=== PATIENT | male | born 1955 ===

== ENCOUNTER 2022-04-08 11:16 | Inpatient (IN) ==
[2022-04-08] MEDS ORDERED: morphine 4 MG/ML VIAL IV ONE ×2 (11:35→12:17)
[2022-04-08] MEDS ORDERED: ONDANSETRON 4 MG/2 ML VIAL IV ONE (11:35)
--- NOTE | 2022-04-08 11:45 | Emergency Department Note ---
Abdominal Pain HPI <Alfonso Pelayo PA-C - Last Filed: 04/08/22 16:34> General Chief Complaint: Abdominal Pain Stated Complaint: abdominal pain Time Seen by Provider: 04/08/22 11:18 Source: patient Mode of arrival: wheelchair Limitations: no limitations History of Present Illness HPI Narrative: Narrative: This is a 66-year-old male with history end-stage liver disease status post TIPS and liver transplant, depression, hypertension, delayed gastric emptying and esophageal dysmotility with changes suggesting achalasia, TBI on disability and cholelithiasis status postcholecystectomy and of unexplained abdominal pain presents emergency department with complaints of abdominal pain, nausea, dry heaves. He states that this is happened many times before and he has had extensive work-ups and has seen multiple specialists and they have been unable to determine the cause of his abdominal pain. He points to the periumbilical and suprapubic area as where it hurts the most he describes the p ain as a constant dull ache that radiates to his left lower quadrant. Any movement or palpation makes the pain worse. Nothing seems to have improved his pain at home. This this episode of abdominal pain has been going on for 10 days. He does endorse shortness of breath on review of systems but states that he always gets this shortness of breath when he gets abdominal pain. He does have a history of A. fib when he goes into surgery but otherwise is not in A. fib and is not anticoagulated. He denies a recent surgery or procedures or known active cancer or prolonged time of immobilization. He denies lower extremity pain or swelling. He denies fever, chest pain, hemoptysis, hematemesis, dysuria, urinary frequency or urgency, black or bloody stools or hematochezia. Does have a history of a liver transplant in 2013. He is a current tobacco user for the past 40+ years. I have reviewed his note from July 18, 2021 where he was admitted to [facility] for elevated lactic acid and acute kidney injury. At this time he was also having abdominal pain episode. A C. difficile was negative at the time Related Data Home Medications Medication Instructions Recorded Confirmed amlodipine 10 mg tablet 1 tab PO QDAY 04/08/22 04/08/22 desvenlafaxine 100 mg 100 mg PO HS 04/08/22 04/08/22 tablet,extended release 24 hr lisinopril 10 mg tablet 1 tab PO QDAY 04/08/22 04/08/22 rosuvastatin 5 mg tablet 1 tab PO QDAY 04/08/22 04/08/22 tacrolimus 1 mg capsule, 1 mg PO QAM 04/08/22 04/08/22 immediate-release tacrolimus 1 mg capsule, 2 mg PO QHS 04/08/22 04/08/22 immediate-release triamterene 37.5 1 cap PO QAM 04/08/22 04/08/22 mg-hydrochlorothiazide 25 mg capsule Allergies Allergy/AdvReac Type Severity Reaction Status Date / Time filgrastim [From Neupogen] Allergy Verified 04/08/22 11:19 Review of Systems <Alfonso Pelayo PA-C - Last Filed: 04/08/22 16:34> ROS ROS Narrative: Narrative: All systems ED: reviewed and negative except as stated. PFSH <Alfonso Pelayo PA-C - Last Filed: 04/08/22 16:34> Narrative Patient History Narrative: Narrative: Medical/Surgical/Family History All Active Problems (Updated 04/08/22 @ 16:34 by Alfonso Pelayo PA-C) Hyponatremia (Acute) LILIA (acute kidney injury) (Acute) Enteritis (Acute) Liver transplant status (Acute) Cirrhosis (Acute) Social History Smoking Status: Current every day smoker Exam <Alfonso Pelayo PA-C - Last Filed: 04/08/22 16:34> Narrative Narrative: Narrative: General Limitations: no limitations General appearance: Present other (Mild to moderate distress) Head Head: Present atraumatic and normocephalic Respiratory Respiratory: Present other (Lungs are clear to auscultation bilaterally. No rhonchi rales or wheezes) Cardiovascular Cardiovascular: Present regular rate, normal rhythm and normal heart sounds Adbominal Abdominal: Present other (Patient is diffusely tender but worse periumbilical a nd left lower quadrant. There is no guarding no rebound tenderness nondistended abdomen is soft) Extremities Extremities: Present other (Negative Homans' sign bilaterally. No lower extremity edema or overlying erythema or ecchymosis. Dorsalis pedis +2 bilaterally.) Neurological Neurological: Present alert and oriented X3 Psychiatric Psychiatric: Present normal affect and normal mood Skin Skin: Present warm (WNL), dry and normal color Course <Alfonso Pelayo PA-C - Last Filed: 04/08/22 16:34> Vital Signs Vital signs: Vital Signs Temperature 97.0 F 04/08/22 11:16 Pulse Rate 97 H 04/08/22 11:16 Respiratory Rate 20 04/08/22 11:16 Pulse Oximetry (%) 99 04/08/22 11:16 Temperature 97.0 F 04/09/22 08:00 Pulse Rate 71 04/09/22 08:00 Respiratory Rate 16 04/09/22 08:00 Blood Pressure 107/70 04/09/22 08:00 Pulse Oximetry (%) 97 04/09/22 08:00 MDM <Alfonso Pelayo PA-C - Last Filed: 04/08/22 16:34> MDM Narrative Medical decision making narrative: Narrative: CBC unremarkable CMP sodium of 122, elevated anion gap, BUN is 102 creatinine 2.9 Magnesium normal Lipase normal Troponin within normal range Urine dip no sign of infection EKG normal sinus rhythm Chest x-ray negative for acute abnormalities CTA abdomen pelvis1. Prominent fluid filled small bowel without transition point or evidence for significant obstruction. Enteritis is possible 2. Oval-shaped densities in the distal inguinal canal consistent with testicles. Adenopathy is possible 3. Enlarged adrenal glands without focal mass. Possible adrenal hyperplasia 4. Previous gastric surgery. Small hiatal hernia 5. Degenerative disc disease 6. Calcification of the abdominal aorta with infrarenal ectasia Differential diagnosis includes mesenteric ischemia, diverticulitis, UTI, AAA, bowel obstruction, gastritis, enteritis, ileus, pancreatitis, liver failure, sepsis. As for shortness of breath I did consider pulmonary embolism as a cause but with his history of getting shortness of breath with the abdominal pain every time and with no findings suggesting DVT and he is not having chest pain I think unlikely to be a pulmonary embolism. I will check an EKG chest x-ray and tro ponin but think PE is unlikely at this point. I saw this patient over at [facility] in July for nearly identical symptoms and disposition. We will need to admit the patient for LILIA, hyponatre ace and abdominal pain. I spoke with the hospitalist Dr. Rosenberg. He agreed to admit the patient for further evaluation and treatment. The patient was given 2 L of saline down here in the emergency department. Patient's blood pressure did decrease after morphine administration and we held off on any additional pain medication while we gave him fluids. His blood pressure remains soft but was st able his last couple hours here in the emergency department before they took him inpatient. I also started him on ceftriaxone and metronidazole. His lactic acid was normal. He will be admitted to the hospital for further evaluation and treatment Lab Data Result diagrams: 04/09/22 05:12 04/09/22 05:12 Labs: Lab Results 04/08/22 04/08/22 04/08/22 Range/Units 11:50 11:51 11:51 WBC 9.4 (4.5-11.0) K/mcL RBC 4.16 L (4.63-6.08) M/mcL Hgb 13.0 L (13.7-17.5) g/dL Hct 36.7 L (40.1-51.0) % MCV 88.2 (80.0-100.0) fL MCH 31.3 (26.0-34.0) pg MCHC 35.4 (31.0-36.0) g/dL RDW 11.4 L (11.5-14.5) % Plt Count 248 (140-440) K/mcL MPV 11.1 H (7.4-10.4) fL Neut % (Auto) 67.7 (38.0-78.0) % Lymph % (Auto) 16.4 (15.5-49.0) % [place] % (Auto) 15.6 H (1.0-12.0) % Eos % (Auto) 0.2 (0.0-7.0) % Baso % (Auto) 0.1 (0.0-2.0) % Lymph # (Auto) 1.55 (1.50-4.80) K/mcL [place] # (Auto) 1.47 H (0.10-0.90) K/mcL Eos # (Auto) 0.02 (0.00-0.70) K/mcL Baso # (Auto) 0.01 (0.00-0.30) K/mcL Absolute Neutrophils 6.38 (1.80-8.00) K/mcL POC VBG pH (7.32-7.42) POC VBG pCO2 at Temp (41-51) POC VBG pO2 (25-40) POC VBG HCO3 (24-28) POC VBG Total CO2 (25-29) POC Venous O2 Sat (40-70) POC VBG Base Excess (-2-2) Sodium 122 L (133-145) mmol/L Potassium 4.9 (3.3-5.1) mmol/L Chloride 84 L (96-108) mmol/L Carbon Dioxide 16 L (22-30) mmol/L Anion Gap 22.0 H (8.0-16.0) BUN 102 H* (8-23) mg/dL Creatinine 2.9 H (0.7-1.2) mg/dL POC Creatinine GFR Calculation 21 Glucose 208 H (70-105) mg/dL POC Venous Lactate (0.5-2) Calcium 10.0 (8.6-10.4) mg/dL Magnesium 2.3 (1.6-2.5) mg/dL Total Bilirubin 0.6 (0.1-1.0) mg/dL AST 18 (<40) U/L ALT 18 (<40) U/L Alkaline Phosphatase 141 H (39-117) U/L Total Protein 7.6 (5.9-8.4) gm/dL Albumin 4.3 (3.2-5.2) gm/dL Globulin 3.3 (2.2-3.7) gm/dL Albumin/Globulin Ratio 1.3 (1.0-2.3) Lipase 18 (7-60) U/L Urine Color Urine Appearance (Clear) Urine pH (5.0-9.0) Ur Specific [place] (1.000-1.035) Urine Protein (Negative) mg/dL Urine Glucose (UA) (Negative) mg/dL Urine Ketones (Negative) mg/dL Urine Occult Blood (Negative) mg/dL Urine Nitrate (Negative) Urine Bilirubin (Negative) mg/dL Urine Urobilinogen mg/dL Ur Leukocyte Esterase (Negative) /uL Urine RBC (0-3) /hpf Urine WBC (0-4) /hpf Ur Squamous Epith Cells (0-4) /hpf Urine Bacteria (0) /hpf Hyaline Casts (0-2) /lph Ur Culture Indicated? POC Troponin I (0.02-0.08) 04/08/22 04/08/22 04/08/22 Range/Units 11:55 11:57 13:49 WBC (4.5-11.0) K/mcL RBC (4.63-6.08) M/mcL Hgb (13.7-17.5) g/dL Hct (40.1-51.0) % MCV (80.0-100.0) fL MCH (26.0-34.0) pg MCHC (31.0-36.0) g/dL RDW (11.5-14.5) % Plt Count (140-440) K/mcL MPV (7.4-10.4) fL Neut % (Auto) (38.0-78.0) % Lymph % (Auto) (15.5-49.0) % [place] % (Auto) (1.0-12.0) % Eos % (Auto) (0.0-7.0) % Baso % (Auto) (0.0-2.0) % Lymph # (Auto) (1.50-4.80) K/mcL [place] # (Auto) (0.10-0.90) K/mcL Eos # (Auto) (0.00-0.70) K/mcL Baso # (Auto) (0.00-0.30) K/mcL Absolute Neutrophils (1.80-8.00) K/mcL POC VBG pH (7.32-7.42) POC VBG pCO2 at Temp (41-51) POC VBG pO2 (25-40) POC VBG HCO3 (24-28) POC VBG Total CO2 (25-29) POC Venous O2 Sat (40-70) POC VBG Base Excess (-2-2) Sodium (133-145) mmol/L Potassium (3.3-5.1) mmol/L Chloride (96-108) mmol/L Carbon Dioxide (22-30) mmol/L Anion Gap (8.0-16.0) BUN (8-23) mg/dL Creatinine (0.7-1.2) mg/dL POC Creatinine 3.1 H GFR Calculation Glucose (70-105) mg/dL POC Venous Lactate (0.5-2) Calcium (8.6-10.4) mg/dL Magnesium (1.6-2.5) mg/dL Total Bilirubin (0.1-1.0) mg/dL AST (<40) U/L ALT (<40) U/L Alkaline Phosphatase (39-117) U/L Total Protein (5.9-8.4) gm/dL Albumin (3.2-5.2) gm/dL Globulin (2.2-3.7) gm/dL Albumin/Globulin Ratio (1.0-2.3) Lipase (7-60) U/L Urine Color Yellow Urine Appearance Hazy A (Clear) Urine pH 5.0 (5.0-9.0) Ur Specific [place] 1.016 (1.000-1.035) Urine Protein Negative (Negative) mg/dL Urine Glucose (UA) Negative (Negative) mg/dL Urine Ketones 5 A (Negative) mg/dL Urine Occult Blood Negative (Negative) mg/dL Urine Nitrate Negative (Negative) Urine Bilirubin Negative (Negative) mg/dL Urine Urobilinogen Negative mg/dL Ur Leukocyte Esterase Negative (Negative) /uL Urine RBC 1 (0-3) /hpf Urine WBC 0 (0-4) /hpf Ur Squamous Epith Cells 0 (0-4) /hpf Urine Bacteria None (0) /hpf Hyaline Casts 44 H (0-2) /lph Ur Culture Indicated? No POC Troponin I 0.02 (0.02-0.08) 04/08/22 Range/Units 14:39 WBC (4.5-11.0) K/mcL RBC (4.63-6.08) M/mcL Hgb (13.7-17.5) g/dL Hct (40.1-51.0) % MCV (80.0-100.0) fL MCH (26.0-34.0) pg MCHC (31.0-36.0) g/dL RDW (11.5-14.5) % Plt Count (140-440) K/mcL MPV (7.4-10.4) fL Neut % (Auto) (38.0-78.0) % Lymph % (Auto) (15.5-49.0) % [place] % (Auto) (1.0-12.0) % Eos % (Auto) (0.0-7.0) % Baso % (Auto) (0.0-2.0) % Lymph # (Auto) (1.50-4.80) K/mcL [place] # (Auto) (0.10-0.90) K/mcL Eos # (Auto) (0.00-0.70) K/mcL Baso # (Auto) (0.00-0.30) K/mcL Absolute Neutrophils (1.80-8.00) K/mcL POC VBG pH 7.47 H (7.32-7.42) POC VBG pCO2 at Temp 27.4 L (41-51) POC VBG pO2 16 L (25-40) POC VBG HCO3 19.9 L (24-28) POC VBG Total CO2 21.0 L (25-29) POC Venous O2 Sat 27.0 L (40-70) POC VBG Base Excess -4.0 L (-2-2) Sodium (133-145) mmol/L Potassium (3.3-5.1) mmol/L Chloride (96-108) mmol/L Carbon Dioxide (22-30) mmol/L Anion Gap (8.0-16.0) BUN (8-23) mg/dL Creatinine (0.7-1.2) mg/dL POC Creatinine GFR Calculation Glucose (70-105) mg/dL POC Venous Lactate 1.1 (0.5-2) Calcium (8.6-10.4) mg/dL Magnesium (1.6-2.5) mg/dL Total Bilirubin (0.1-1.0) mg/dL AST (<40) U/L ALT (<40) U/L Alkaline Phosphatase (39-117) U/L Total Protein (5.9-8.4) gm/dL Albumin (3.2-5.2) gm/dL Globulin (2.2-3.7) gm/dL Albumin/Globulin Ratio (1.0-2.3) Lipase (7-60) U/L Urine Color Urine Appearance (Clear) Urine pH (5.0-9.0) Ur Specific [place] (1.000-1.035) Urine Protein (Negative) mg/dL Urine Glucose (UA) (Negative) mg/dL Urine Ketones (Negative) mg/dL Urine Occult Blood (Negative) mg/dL Urine Nitrate (Negative) Urine Bilirubin (Negative) mg/dL Urine Urobilinogen mg/dL Ur Leukocyte Esterase (Negative) /uL Urine RBC (0-3) /hpf Urine WBC (0-4) /hpf Ur Squamous Epith Cells (0-4) /hpf Urine Bacteria (0) /hpf Hyaline Casts (0-2) /lph Ur Culture Indicated? POC Troponin I (0.02-0.08) EKG Data EKG #1: EKG results narrative: EKG shows a sinus rhythm at 83 beats a minute, left axis deviation, normal MS interval narrow QRS normal QTC. There is no sign of Brugada, [id number]-[id number] or HOCM. There is no ST segment deviations or hyperacute T waves. No previous EKGs for comparison. My interpretation normal sinus rhyth m Discharge Plan Patient/Caregiver Discharge Instructions Pt seen by [facility]/PA only: Yes Clinical Impression: Hyponatremia, LILIA (acute kidney injury), Enteritis Activity: increase activity as tolerated Patient Disposition: Xfer As Inpt ([facility]) Condition: Serious Discharge Date/Time: 04/08/22 16:20 Discharge Comment: Taken to [facility] via w/c
[2022-04-08] MEDS ORDERED: 0.9 % SODIUM CHLORIDE 1,000 ML IV ONE ×2 (11:51→13:26)
--- NOTE | 2022-04-08 12:26 | XRay Report ---
INDICATION: SOB TECHNIQUE: AP portable semiupright chest x-ray COMPARISON: None FINDINGS: Lungs:Lungs are negative. No focal pulmonary parenchymal infiltrate or mass Heart, vascular:No significant cardiomegaly. Pulmonary vascularity is normal. No pulmonary edema or pulmonary congestion Mediastinum, loco:No mediastinal widening. No hilar mass Pleura:No pleural fluid. No pleural-based mass or calcification Skeletal:Old healed left-sided rib fractures. No acute fracture. IMPRESSION: No acute abnormality Interpreted and Authenticated by: Ignacio Baez 04/08/22
[2022-04-08 12:41] LABS: Basophils # (Auto) 0.01 K/mcL (0.00-0.30); Basophils % (Auto) 0.1 % (0.0-2.0); Eosinophils # (Auto) 0.02 K/mcL (0.00-0.70); Eosinophils % (Auto) 0.2 % (0.0-7.0); Hematocrit 36.7 % (40.1-51.0); Lymphocytes # (Auto) 1.55 K/mcL (1.50-4.80); Lymphocytes % (Auto) 16.4 % (15.5-49.0); Mean Cell Volume 88.2 fL (80.0-100.0); Mean Corpuscular HGB Conc 35.4 g/dL (31.0-36.0); Mean Platelet Volume 11.1 fL (7.4-10.4); Monocytes # (Auto) 1.47 K/mcL (0.10-0.90); Monocytes % (Auto) 15.6 % (1.0-12.0); Neutrophils % (Auto) 67.7 % (38.0-78.0); Platelet Count 248 K/mcL (140-440); RBC 4.16 M/mcL (4.63-6.08); Red Cell Distribution Width 11.4 % (11.5-14.5); WBC 9.4 K/mcL (4.5-11.0)
--- NOTE | 2022-04-08 13:02 | Cat Scan Report ---
INDICATION: periumbilical pain out of proportion to exam. COMPARISON: Previous examinations dated 12/28/2009, 07/07/2009 TECHNIQUE: Axial images were obtained through the abdomen and pelvis. Sagittally and coronally reformatted images. FINDINGS: Lung bases:No pulmonary parenchymal density. No calcified or noncalcified nodule. No pleural or pericardial effusion Liver:Negative to the limits of noncontrast enhanced examination. Liver contour is smooth without evidence for cirrhosis Gallbladder, bilary:Surgical clips in the gallbladder fossa. No intra or extrahepatic bile duct dilatation Spleen:No splenomegaly Pancreas:No pancreatic mass. No peripancreatic abnormality Adrenal glands:Adrenal glands are enlarged bilaterally consistent with adrenal hyperplasia. No discrete adrenal mass identified Kidneys,ureters,bladder:There is no hydronephrosis. No obstructing or nonobstructing calculi. No detectable renal mass on this noncontrast enhanced examination No hydroureter. No ureteral calculus. No bladder stone. No detectable bladder mass. Gastrointestinal:No detectable colonic mass. There is no diverticulitis. There is sigmoid diverticulosis. Small bowel is prominent and fluid containing. Jejunum measures approximately 2.5 cm in maximum diameter. There is no transition point. There is gas and fecal material within the colon. Appearance is not consistent with significant mechanical small bowel obstruction. Enteritis is possible. Clinical correlation necessary. There are surgical clips at gastroesophageal junction and probable small hiatal hernia Appendix: The appendix is negative Vascular:There is calcification of the abdominal aorta. No abdominal aortic aneurysm. Maximum cross-sectional diameter of the infrarenal abdominal aorta is 2.4 cm. There is calcified plaque in the common iliac arteries and external iliac arteries bilaterally Lymphatic:No retroperitoneal adenopathy. No significant mesenteric adenopathy. Mesentery, peritoneum:No free intraperitoneal fluid. No intra-abdominal abscess. No pneumoperitoneum Reproductive:Prostate is not significantly enlarged. There are calcifications within the prostate. There are oval-shaped densities within the inguinal canal bilaterally, proximal to the scrotum. These measure 2.9 cm on the left and 2.7 cm on the right. These are new since previous examination. Appearances consistent with testicles in the distal inguinal canal. Clinical correlation is necessary. Enlarged inguinal lymph nodes are possible Musculoskeletal:Degenerative disc disease at L4-5 and L5-S1. No lumbar compression fractures. Sacrum and pelvis are negative. Hips are negative. No anterior abdominal wall or inguinal hernia. IMPRESSION: 1. Prominent fluid filled small bowel without transition point or evidence for significant obstruction. Enteritis is possible 2. Oval-shaped densities in the distal inguinal canal consistent with testicles. Adenopathy is possible 3. Enlarged adrenal glands without focal mass. Possible adrenal hyperplasia 4. Previous gastric surgery. Small hiatal hernia 5. Degenerative disc disease 6. Calcification of the abdominal aorta with infrarenal ectasia The exam was performed using radiation dose optimization techniques including, but not limited to, automated exposure control, adjustment of the mA and/or kV according to patient size and use of iterative reconstruction technique. Interpreted and Authenticated by: Ignacio Baez 04/08/22
[2022-04-08 14:09] LABS: ALT/SGPT 18 U/L (<40); AST/SGOT 18 U/L (<40); Albumin 4.3 gm/dL (3.2-5.2); Albumin/Globulin Ratio 1.3 (1.0-2.3); Alkaline Phosphatase 141 U/L (39-117); Bilirubin,Total 0.6 mg/dL (0.1-1.0); Blood Urea Nitrogen 102 mg/dL (8-23); Carbon Dioxide 16 mmol/L (22-30); Chloride 84 mmol/L (96-108); Globulin 3.3 gm/dL (2.2-3.7); Glomerular Filtration Rate 21; Glucose 208 mg/dL (70-105)
[2022-04-08 14:49] LABS: Appearance,Urine HAZY (Clear); Bilirubin,Urine Negative (Negative); Color,Urine YELLOW; Culture Indicated,Urine No; Glucose,Urine (UA) Negative (Negative); Ketones,Urine 5 mg/dL (Negative); Leukocyte Esterase,Urine Negative /uL (Negative); Nitrate,Urine Negative (Negative); Protein,Urine Negative (Negative); Specific Gravity,Urine 1.016 (1.000-1.035); Urine Blood Negative (Negative); Urine Hyaline Cast 44 /lph (0-2); Urine RBC 1 /hpf (0-3); Urine Squamous Epithelial Cell 0 /hpf (0-4); Urine WBC 0 /hpf (0-4); Urobilinogen,Urine Negative
[2022-04-08] MEDS ORDERED: metroNIDAZOLE 500 MG in PREMIX 1 BAG IV ONE (15:19)
[2022-04-08] MEDS ORDERED: cefTRIAXone 1 GM VIAL IM ONE (15:19)
--- NOTE | 2022-04-08 15:39 | Internal Med History&Physical ---
HPI History of Present Illness Patient information: Note initiated : 04/08/22 at 3:33 pm Service Date, if different from initiated Date: [as above] Patient: Tu Thomas a 66 y/o M admitted on for abdominal pain. Chief Complaint: [Abdominal pain] Chief complaint: Abdominal pain History of present illness: Mr. Thomas is a 66 year old M complex past medical history significant for orthotopic liver transplant completed in [place] in 2012 who now presents to the hospital with 1 week history of abdominal pain associated with nausea, vomiting and inappetence. The patient states that he was in his usual state of health nearly 10 days ago. He denies any fevers or chills but complains of ongoing abdominal pain. His was at the bedside to corroborate the history. She states that he is usually quite functional and his premorbid baseline is quite good. On presentation, the patient was hemodynamically stable and afebrile. CT abdomen pelvis was performed and was concerning for prominent fluid-filled small bowel without transition point or evidence of significant obstruction. Enteritis was possible. Labs revealed a sodium of 122, and a creatinine of 3.0. The hospitalist service was asked admit the patient for further management and evaluation of his enteritis as well as acute kidney injury. Review of Systems All systems: reviewed and no additional remarkable complaints except as stated Constitutional Constitutional: Present as per HPI EENT Eyes: Present as per HPI; Absent blurry vision Cardiovascular Cardiovascular: Present as per HPI; Absent chest pain, dyspnea, dyspnea on exertion, leg edema or palpatations Respiratory Respiratory: Present as per HPI; Absent cough, dyspnea, dyspnea on exertion, wheezing or stridor Gastrointestinal Gastrointestinal: Present as per HPI, abdominal pain, nausea and vomiting; Absent diarrhea, dysphagia, hematemesis or melena Musculoskeletal Musculoskeletal: Present as per HPI; Absent joint swelling, limited range of motion, muscle cramps, muscle weakness or myalgias Integumentary Integumentary: Present as per HPI; Absent erythema, new lesions, rash or wounds Neurological Neurological: Present as per HPI; Absent abnormal gait, behavioral changes, focal weakness, headache(s), loss of vision, numbness, sensory deficit or syncope Endocrine Endocrine: Absent change in body appearance, fatigue or heat intolerance Hematologic/Lymphatic Hematologic/Lymphatic: Present as per HPI PFSH PFSH All Active Problems (Updated 04/08/22 @ 15:37 by Rozina Infante MD) Hyponatremia (Acute) LILIA (acute kidney injury) (Acute) Enteritis (Acute) Liver transplant status (Acute) Cirrhosis (Acute) MEDS/ALLERGIES Home Medications and Allergies Allergies Allergy/AdvReac Type Severity Reaction Status Date / Time filgrastim [From Neupogen] Allergy Verified 04/08/22 11:19 EXAM Constitutional Vitals: Temp Pulse Resp BP Pulse Ox 97.0 F 86 15 96/75 100 04/08/22 11:16 04/08/22 12:26 04/08/22 15:00 04/08/22 15:00 04/08/22 12:26 General appearance: average body habitus Head Head exam: Present atraumatic, normal inspection and normocephalic Eye Eye exam: Present EOMI, normal appearance and PERRL; Absent conjunctival injection ENT ENT exam: Present normal exam; Absent mucous membranes dry Neck Neck exam: Present full ROM; Absent lymphadenopathy Respiratory Respiratory exam: Present normal respiratory exam and CTAB; Absent decreased breath sounds, respiratory distress or wheezes Cardiovascular Cardiovascular exam: Present normal rate and rhythm and RRR; Absent JVD GI/Abdominal GI/Abdominal exam: Present normal bowel sounds, soft, distended, guarding and tenderness; Absent mass or rebound Neurological Exam Neurological exam: Present alert, CN II-XII intact and oriented X3 Psychiatric Psychiatric exam: Present normal affect and normal mood Skin Skin exam: Present intact and warm; Absent erythema, pallor, petechiae or rash DATA Data Completed and Pending Labs: Labs from last 24 hours 04/08/22 04/08/22 04/08/22 14:39 13:49 11:57 WBC RBC Hgb Hct MCV MCH MCHC RDW Plt Count MPV Neut % (Auto) Lymph % (Auto) [place] % (Auto) Eos % (Auto) Baso % (Auto) Lymph # (Auto) [place] # (Auto) Eos # (Auto) Baso # (Auto) Absolute Neutrophils POC VBG pH 7.47 H POC VBG pCO2 at Temp 27.4 L POC VBG pO2 16 L POC VBG HCO3 19.9 L POC VBG Total CO2 21.0 L POC Venous O2 Sat 27.0 L POC VBG Base Excess -4.0 L Sodium Potassium Chloride Carbon Dioxide Anion Gap BUN Creatinine POC Creatinine GFR Calculation Glucose POC Venous Lactate 1.1 Calcium Magnesium Total Bilirubin AST ALT Alkaline Phosphatase Total Protein Albumin Globulin Albumin/Globulin Ratio Lipase Urine Color Yellow Urine Appearance Hazy A Urine pH 5.0 Ur Specific [place] 1.016 Urine Protein Negative Urine Glucose (UA) Negative Urine Ketones 5 A Urine Occult Blood Negative Urine Nitrate Negative Urine Bilirubin Negative Urine Urobilinogen Negative Ur Leukocyte Esterase Negative Urine RBC 1 Urine WBC 0 Ur Squamous Epith Cells 0 Urine Bacteria None Hyaline Casts 44 H Ur Culture Indicated? No POC Troponin I 0.02 04/08/22 04/08/22 04/08/22 11:55 11:51 11:51 WBC 9.4 RBC 4.16 L Hgb 13.0 L Hct 36.7 L MCV 88.2 MCH 31.3 MCHC 35.4 RDW 11.4 L Plt Count 248 MPV 11.1 H Neut % (Auto) 67.7 Lymph % (Auto) 16.4 [place] % (Auto) 15.6 H Eos % (Auto) 0.2 Baso % (Auto) 0.1 Lymph # (Auto) 1.55 [place] # (Auto) 1.47 H Eos # (Auto) 0.02 Baso # (Auto) 0.01 Absolute Neutrophils 6.38 POC VBG pH POC VBG pCO2 at Temp POC VBG pO2 POC VBG HCO3 POC VBG Total CO2 POC Venous O2 Sat POC VBG Base Excess Sodium 122 L Potassium 4.9 Chloride 84 L Carbon Dioxide 16 L Anion Gap 22.0 H BUN 102 H* Creatinine 2.9 H POC Creatinine 3.1 H GFR Calculation 21 Glucose 208 H POC Venous Lactate Calcium 10.0 Magnesium Total Bilirubin 0.6 AST 18 ALT 18 Alkaline Phosphatase 141 H Total Protein 7.6 Albumin 4.3 Globulin 3.3 Albumin/Globulin Ratio 1.3 Lipase 18 Urine Color Urine Appearance Urine pH Ur Specific [place] Urine Protein Urine Glucose (UA) Urine Ketones Urine Occult Blood Urine Nitrate Urine Bilirubin Urine Urobilinogen Ur Leukocyte Esterase Urine RBC Urine WBC Ur Squamous Epith Cells Urine Bacteria Hyaline Casts Ur Culture Indicated? POC Troponin I 04/08/22 11:50 WBC RBC Hgb Hct MCV MCH MCHC RDW Plt Count MPV Neut % (Auto) Lymph % (Auto) [place] % (Auto) Eos % (Auto) Baso % (Auto) Lymph # (Auto) [place] # (Auto) Eos # (Auto) Baso # (Auto) Absolute Neutrophils POC VBG pH POC VBG pCO2 at Temp POC VBG pO2 POC VBG HCO3 POC VBG Total CO2 POC Venous O2 Sat POC VBG Base Excess Sodium Potassium Chloride Carbon Dioxide Anion Gap BUN Creatinine POC Creatinine GFR Calculation Glucose POC Venous Lactate Calcium Magnesium 2.3 Total Bilirubin AST ALT Alkaline Phosphatase Total Protein Albumin Globulin Albumin/Globulin Ratio Lipase Urine Color Urine Appearance Urine pH Ur Specific [place] Urine Protein Urine Glucose (UA) Urine Ketones Urine Occult Blood Urine Nitrate Urine Bilirubin Urine Urobilinogen Ur Leukocyte Esterase Urine RBC Urine WBC Ur Squamous Epith Cells Urine Bacteria Hyaline Casts Ur Culture Indicated? POC Troponin I A/P Assessment and plan (1) Cirrhosis: Status: Acute (2) Liver transplant status: Status: Acute (3) Enteritis: Status: Acute (4) LILIA (acute kidney injury): Status: Acute (5) Hyponatremia: Status: Acute Narrative A/P Narrative: At this time, the patient's enteritis is likely viral versus bacterial. We will empirically cover with ceftriaxone and Flagyl. We will continue conservative management with bowel rest. He may have clear liquid diets and we will resuscitate him with IV fluids. The patient will continue IV morphine as needed. He was asking for IV Dilaudid however I told him that he will be on morphine instead. We will continue his home immunosuppression medications. Time Spent With Patient Time: Total time spent is greater than 50% in coordination of care (as documented) at patient's floor/unit and/or counseling patient: Total time spent with greater than 50% in coordination of care (as documented) at patient's floor/unit and/or counseling patient:: 35 - 50 minutes Critical Care Time: No
[2022-04-08] MEDS ORDERED: cefTRIAXone 1 GM VIAL IV ONE (15:51)
[2022-04-08] MEDS ORDERED: morphine 2 MG/ML VIAL IV PRN (16:47)
[2022-04-08] MEDS ORDERED: ONDANSETRON 4 MG/2 ML VIAL IV PRN (16:47)
[2022-04-08] MEDS: LACTATED RINGERS 1,000 ML IV SCH (17:00)
[2022-04-08] MEDS: HEPARIN 5,000 UNIT/ML VIAL SQ SCH (19:36)
[2022-04-08] MEDS: 0.9 % SODIUM CHLORIDE 10 ML SYRINGE IV SCH (20:35)
[2022-04-08] MEDS: DOCUSATE SODIUM 100 MG CAPSULE PO SCH (20:36)
[2022-04-08] MEDS ORDERED: TACROLIMUS 1 MG CAPSULE PO SCH (21:00)
[2022-04-08] MEDS ORDERED: DESVENLAFAXINE 100 MG PO SCH (21:00)
[2022-04-08] MEDS ORDERED: SENNOSIDES 1 TABLET PO SCH (21:00)
[2022-04-08] MEDS: morphine 4 MG/ML VIAL IV PRN (22:12)
[2022-04-08] MEDS ORDERED: HYDROmorphone 0.5 MG/0.5 ML SYRINGE IV ONE (22:30)
[2022-04-09] MEDS ORDERED: HYDROmorphone 0.5 MG/0.5 ML SYRINGE ONE (00:28)
[2022-04-09] MEDS: LACTATED RINGERS 1,000 ML IV SCH (03:03)
[2022-04-09] MEDS: 0.9 % SODIUM CHLORIDE 10 ML SYRINGE IV SCH (05:03)
[2022-04-09 06:39] LABS: Basophils # (Auto) 0.01 K/mcL (0.00-0.30); Basophils % (Auto) 0.1 % (0.0-2.0); Eosinophils # (Auto) 0.05 K/mcL (0.00-0.70); Eosinophils % (Auto) 0.7 % (0.0-7.0); Hematocrit 33.2 % (40.1-51.0); Hemoglobin 11.4 g/dL (13.7-17.5); Lymphocytes # (Auto) 1.55 K/mcL (1.50-4.80); Lymphocytes % (Auto) 22.8 % (15.5-49.0); Mean Cell Volume 91.2 fL (80.0-100.0); Mean Corpuscular HGB Conc 34.3 g/dL (31.0-36.0); Mean Platelet Volume 11.5 fL (7.4-10.4); Monocytes # (Auto) 1.07 K/mcL (0.10-0.90); Monocytes % (Auto) 15.8 % (1.0-12.0); Neutrophils % (Auto) 60.6 % (38.0-78.0); Platelet Count 208 K/mcL (140-440); RBC 3.64 M/mcL (4.63-6.08); Red Cell Distribution Width 11.2 % (11.5-14.5); WBC 6.8 K/mcL (4.5-11.0)
[2022-04-09 06:52] LABS: ALT/SGPT 16 U/L (<40); AST/SGOT 18 U/L (<40); Albumin 3.9 gm/dL (3.2-5.2); Albumin/Globulin Ratio 1.4 (1.0-2.3); Alkaline Phosphatase 118 U/L (39-117); Bilirubin,Total 0.4 mg/dL (0.1-1.0); Blood Urea Nitrogen 67 mg/dL (8-23); Calcium 8.7 mg/dL (8.6-10.4); Carbon Dioxide 21 mmol/L (22-30); Chloride 97 mmol/L (96-108); Globulin 2.7 gm/dL (2.2-3.7); Glomerular Filtration Rate 44; Glucose 119 mg/dL (70-105)
--- NOTE | 2022-04-09 07:21 | EKG ---
[facility] Minor Care Test Date: 2022-04-08 Pat Name: Tu Thomas Department: ED Room: Gender: Male [place]ub[place]: hs : 1955 Requested By: Alfonso Pelayo Order Number: [id number] Reading MD: Reggie Ibrahim Measurements Intervals [place] Rate: 83 P: 35 DE: 159 QRS: -75 QRSD: 85 T: 65 QT: 407 QTc: 479 Interpretive Statements Sinus rhythm RSR' in V1 or V2, right VCD or RVH Inferior infarct, old Electronically Signed On 04-09-2022 7:21:12 PDT by Reggie Ibrahim /store/M0/[id number]
[2022-04-09] MEDS: HEPARIN 5,000 UNIT/ML VIAL SQ SCH (08:45)
[2022-04-09] MEDS: DOCUSATE SODIUM 100 MG CAPSULE PO SCH (08:48)
[2022-04-09] MEDS ORDERED: ENOXAPARIN 40 MG/0.4 ML SYRINGE SQ SCH (09:00)
[2022-04-09] MEDS ORDERED: TACROLIMUS 1 MG CAPSULE PO SCH (09:00)
[2022-04-09] MEDS: morphine 4 MG/ML VIAL IV PRN (10:31)
--- NOTE | 2022-04-09 11:53 | Internal Med Progress Note ---
SUBJECTIVE Subjective Patient information: Note initiated : 04/09/22 at 11:51 am Service Date, if different from initiated Date: [] Patient: Tu Thomas 66 y/o M admitted on 04/08/22 for abdominal pain. Chief Complaint: [Abdominal pain, weakness] Principal diagnosis: Acute kidney injury, small bowel enteritis Interval history: Clinically speaking the patient complains of pain that is out of proportion with his clinical findings. He is neither hypertensive nor tachycardic. There is concerns for pain seeking behavior. Constitutional Vitals: Vital Signs Temp Pulse Resp BP Pulse Ox 97.0 F 71 16 107/70 97 04/09/22 08:00 04/09/22 08:00 04/09/22 08:00 04/09/22 08:00 04/09/22 08:00 Period Temp Pulse Resp BP Sys/Mcginnis Pulse Ox Last 24 Hr 97.0 F-98.4 F 71-88 12-34 65-149/42-137 94-100 Intake and Output 04/08/22 04/09/22 04/09/22 21:59 05:59 13:59 Intake Total 1063 1120 337 Balance 1063 1120 337 Weight 65.856 kg Intake & Output: Intake & Output 04/08/22 04/09/22 04/09/22 21:59 05:59 13:59 Intake Total 1063 1120 337 Balance 1063 1120 337 Weight 65.856 kg Intake: IV 1063 1000 37 Sodium Chloride 0.9% 1,000 ml @ 1000 Wide Open IV BOLUS ONE Rx#: [id number] Lactated Ringers 1,000 ml @ 100 1000 mls/hr IV .Q10H SKYLAR Rx#: [id number] Flagyl 500 mg In Premix 1 Bag @ 63 37 100 mls/hr IV ONCE ONE Rx#: [id number] Oral 120 300 Other: Meal Breakfast Percent of Meal Consumed 100% Feeding Ability Independent Stool Size Small Moderate Large Stool Color Brown Brown Brown Stool Consistency Liquid Liquid Liquid Loose # Voids 10 1 # Bowel Movements 2 10 1 Head Head exam: Present atraumatic and normal inspection Eye Eye exam: Present normal appearance ENT ENT exam: Present mucous membranes moist, normal exam and normal external ear exam Neck Neck exam: Present normal inspection Respiratory Respiratory exam: Present normal respiratory exam Cardiovascular Cardiovascular exam: Present normal rate and rhythm GI/Abdominal GI/Abdominal exam: Present normal bowel sounds, soft, distended, guarding and tenderness Back Exam Back exam: Present normal inspection Neurological Exam Neurological exam: Present alert and oriented X3 Skin Skin exam: Present intact and warm OBJ DATA Labs CBC & Chem 7: 04/09/22 05:12 04/09/22 05:12 Labs: Abnormal Lab Results 04/09/22 04/09/22 04/08/22 05:12 05:12 14:39 RBC 3.64 L Hgb 11.4 L Hct 33.2 L RDW 11.2 L MPV 11.5 H [place] % (Auto) 15.8 H [place] # (Auto) 1.07 H POC VBG pH 7.47 H POC VBG pCO2 at Temp 27.4 L POC VBG pO2 16 L POC VBG HCO3 19.9 L POC VBG Total CO2 21.0 L POC Venous O2 Sat 27.0 L POC VBG Base Excess -4.0 L Sodium 130 L Chloride Carbon Dioxide 21 L Anion Gap BUN 67 H Creatinine 1.6 H POC Creatinine Glucose 119 H Alkaline Phosphatase 118 H Urine Appearance Urine Ketones Hyaline Casts 04/08/22 04/08/22 04/08/22 13:49 11:55 11:51 RBC Hgb Hct RDW MPV [place] % (Auto) [place] # (Auto) POC VBG pH POC VBG pCO2 at Temp POC VBG pO2 POC VBG HCO3 POC VBG Total CO2 POC Venous O2 Sat POC VBG Base Excess Sodium 122 L Chloride 84 L Carbon Dioxide 16 L Anion Gap 22.0 H BUN 102 H* Creatinine 2.9 H POC Creatinine 3.1 H Glucose 208 H Alkaline Phosphatase 141 H Urine Appearance Hazy A Urine Ketones 5 A Hyaline Casts 44 H 04/08/22 11:51 RBC 4.16 L Hgb 13.0 L Hct 36.7 L RDW 11.4 L MPV 11.1 H [place] % (Auto) 15.6 H [place] # (Auto) 1.47 H POC VBG pH POC VBG pCO2 at Temp POC VBG pO2 POC VBG HCO3 POC VBG Total CO2 POC Venous O2 Sat POC VBG Base Excess Sodium Chloride Carbon Dioxide Anion Gap BUN Creatinine POC Creatinine Glucose Alkaline Phosphatase Urine Appearance Urine Ketones Hyaline Casts Meds: Medications Docusate Sodium (Docusate Sodium 100 Mg Capsule) 100 mg PO BID SKYLAR Last Admin: 04/09/22 08:48 Dose: Not Given Documented by: Heparin Sodium (Porcine) (Heparin 5,000 Unit/Ml Vial) 5,000 unit SQ Q12 [facility] Last Admin: 04/09/22 08:45 Dose: 5,000 unit Documented by: Lactated Ringer's (Lactated Ringers) 1,000 mls @ 100 mls/hr IV .Q10H [facility] Last Admin: 04/09/22 03:03 Dose: 100 mls/hr Documented by: Morphine Sulfate (Morphine 4 Mg/Ml Vial) 4 mg IV Q4HP PRN; Protocol PRN Reason: Per Pain Protocol Last Admin: 04/09/22 10:31 Dose: 4 mg Documented by: Ondansetron HCl (Ondansetron 4 Mg/2 Ml Vial) 4 mg IV Q6HP PRN PRN Reason: Nausea And Vomiting Last Admin: 04/09/22 05:39 Dose: 4 mg Documented by: Desvenlafaxine 100 Mg Tablet Extended Release 24 Hr 1 dose PO [facility] Last Admin: 04/08/22 20:35 Dose: Not Given Documented by: Senna (Sennosides 1 Tablet) 2 tab PO [facility] Last Admin: 04/08/22 20:35 Dose: Not Given Documented by: Sodium Chloride (0.9 % Sodium Chloride 10 Ml Syringe) 10 ml IV Q8 [facility] Last Admin: 04/09/22 05:03 Dose: Not Given Documented by: Tacrolimus (Tacrolimus 1 Mg Capsule) 2 mg PO QHS [facility] Last Admin: 04/08/22 20:35 Dose: 2 mg Documented by: Tacrolimus (Tacrolimus 1 Mg Capsule) 1 mg PO QAM [facility] Last Admin: 04/09/22 08:45 Dose: 1 mg Documented by: A/P Assessment and plan (1) Cirrhosis: Status: Acute (2) Liver transplant status: Status: Acute (3) Enteritis: Status: Acute (4) LILIA (acute kidney injury): Status: Acute (5) Hyponatremia: Status: Acute Narrative A/P Narrative: At this time, the patient's enteritis is likely viral versus bacterial. We will empirically cover with ceftriaxone and Flagyl. We will continue conservative management with bowel rest. He may have clear liquid diets and we will resuscitate him with IV fluids. The patient will continue IV morphine as needed. He was asking for IV Dilaudid however I told him that he will be on morphine instead. We will continue his home immunosuppression medications. 04/09: We will continue conservative management for his enteritis. Continue bowel rest, IV fluid resuscitation and pain control. He did receive empiric dose of antibiotics which will not be discontinued. C. difficile was ruled out. The patient's home immunosuppressants with tacrolimus will be continued. His antihypertensives including diuretics and lisinopril will be held. The patient's creatinine has improved to 1.6 and is hyponatremia is also improved. We will advance diet as tolerated and the hope is the patient can return home in the next 24 hours. Time Spent With Patient Time: Total time spent is greater than 50% in coordination of care (as documented) at patient's floor/unit and/or counseling patient: Total time spent with greater than 50% in coordination of care (as documented) at patient's floor/unit and/or counseling patient:: 25 - 35 minutes
--- NOTE | 2022-04-09 12:17 | Discharge Summary ---
Discharge Provider Provider IMPORTANT FOLLOW-UP INFORMATION FOR PCP: Holding home lisinopril and diuretic until f/u with repeat BMP (presents with LILIA) Patient information: Note initiated : 04/09/22 at 12:15 pm Service Date, if different from initiated Date: [as above] Patient: Tu Thomas 66 y/o M admitted on 04/08/22 for abdominal pain. Chief Complaint: [Abdominal pain, weakness] Date of admission: 04/08/22 16:20 Discharge date: 04/09/22 Primary care physician: Liang Giron Admitting clinician: Rozina Infante Consults: 04/08/22 Consult to Physician [CONS] Stat Comment: Consulting Provider: Rozina Infante Reason For Exam: Physician to Consult Discharging clinician: Rozina Infante COURSE Hospital Course Hospital course: Mr. Thomas is a 66 year old M complex past medical history significant for orthotopic liver transplant completed in [place] in 2012 who now presents to the hospital with 1 week history of abdominal pain associated with nausea, vomiting and inappetence. The patient states that he was in his usual state of health nearly 10 days ago. He denies any fevers or chills but complains of ongoing abdominal pain. His was at the bedside to corroborate the history. She states that he is usually quite functional and his premorbid baseline is quite good. On presentation, the patient was hemodynamically stable and afebrile. CT abdomen pelvis was performed and was concerning for prominent fluid-filled small bowel without transition point or evidence of significant obstruction. Enteritis was possible. Labs revealed a sodium of 122, and a creatinine of 3.0. The hospitalist service was asked admit the patient for further management and evaluation of his enteritis as well as acute kidney injury. At this time, the patient's enteritis is likely viral versus bacterial. We will empirically cover with ceftriaxone and Flagyl. We will continue conservative management with bowel rest. He may have clear liquid diets and we will resuscitate him with IV fluids. The patient will continue IV morphine as needed. He was asking for IV Dilaudid however I told him that he will be on mor phine instead. We will continue his home immunosuppression medications. 04/09: The patient was maintained on conservative treatment with bowel rest, IV fluid resuscitation and narcotic analgesics for pain. The patient's pain was out of proportion with his clinical findings and vital signs as he was neither hypotensive nor tachycardic. He complained of 9 out of 10 pain despite morphine 4 mg IV every 4 hours. There was concerns for pain seeking behavior. The patient was quite agitated and verbally abusive at times. His acute kidney injury improved with IV fluids and his creatinine is come down from 2.9-1.6. His home lisinopril and diuretic will be held until he sees his primary care physician. Continue to advance diet as tolerated. Maintain hydration. The patient will be discharged home today. Discharge diagnosis: Small bowel enteritis, acute kidney injury, hyponatremia Time Spent with Patient Time attestation: Total time spent providing and/or coordinating discharge services: Time spent: Greater than 30 minutes EXAM Constitutional Vitals: Temp Pulse Resp BP Pulse Ox 97.4 F 89 18 110/75 98 04/09/22 12:00 04/09/22 12:00 04/09/22 12:00 04/09/22 12:00 04/09/22 12:00 General appearance: average body habitus Head Head exam: Present atraumatic, normal inspection and normocephalic Eye Eye exam: Present EOMI, normal appearance and PERRL; Absent conjunctival injection ENT ENT exam: Present normal exam; Absent mucous membranes dry Neck Neck exam: Present full ROM; Absent lymphadenopathy Respiratory Respiratory exam: Present normal respiratory exam and CTAB; Absent decreased breath sounds, respiratory distress or wheezes Cardiovascular Cardiovascular exam: Present normal rate and rhythm and RRR; Absent JVD GI/Abdominal GI/Abdominal exam: Present normal bowel sounds, guarding and tenderness Neurological Exam Neurological exam: Present alert, CN II-XII intact and oriented X3 Psychiatric Psychiatric exam: Present normal affect and normal mood Skin Skin exam: Present intact and warm; Absent erythema, pallor, petechiae or rash Discharge Data Data Completed and Pending Labs on day of discharge: Labs from last 24 hours 04/09/22 04/09/22 04/08/22 05:12 05:12 14:39 WBC 6.8 RBC 3.64 L Hgb 11.4 L Hct 33.2 L MCV 91.2 MCH 31.3 MCHC 34.3 RDW 11.2 L Plt Count 208 MPV 11.5 H Neut % (Auto) 60.6 Lymph % (Auto) 22.8 [place] % (Auto) 15.8 H Eos % (Auto) 0.7 Baso % (Auto) 0.1 Lymph # (Auto) 1.55 [place] # (Auto) 1.07 H Eos # (Auto) 0.05 Baso # (Auto) 0.01 Absolute Neutrophils 4.11 POC VBG pH 7.47 H POC VBG pCO2 at Temp 27.4 L POC VBG pO2 16 L POC VBG HCO3 19.9 L POC VBG Total CO2 21.0 L POC Venous O2 Sat 27.0 L POC VBG Base Excess -4.0 L Sodium 130 L Potassium 3.5 Chloride 97 Carbon Dioxide 21 L Anion Gap 12.0 BUN 67 H Creatinine 1.6 H GFR Calculation 44 Glucose 119 H POC Venous Lactate 1.1 Calcium 8.7 Magnesium Total Bilirubin 0.4 AST 18 ALT 16 Alkaline Phosphatase 118 H Total Protein 6.6 Albumin 3.9 Globulin 2.7 Albumin/Globulin Ratio 1.4 Lipase Urine Color Urine Appearance Urine pH Ur Specific [place] Urine Protein Urine Glucose (UA) Urine Ketones Urine Occult Blood Urine Nitrate Urine Bilirubin Urine Urobilinogen Ur Leukocyte Esterase Urine RBC Urine WBC Ur Squamous Epith Cells Urine Bacteria Hyaline Casts Ur Culture Indicated? 04/08/22 04/08/22 04/08/22 13:49 11:51 11:51 WBC 9.4 RBC 4.16 L Hgb 13.0 L Hct 36.7 L MCV 88.2 MCH 31.3 MCHC 35.4 RDW 11.4 L Plt Count 248 MPV 11.1 H Neut % (Auto) 67.7 Lymph % (Auto) 16.4 [place] % (Auto) 15.6 H Eos % (Auto) 0.2 Baso % (Auto) 0.1 Lymph # (Auto) 1.55 [place] # (Auto) 1.47 H Eos # (Auto) 0.02 Baso # (Auto) 0.01 Absolute Neutrophils 6.38 POC VBG pH POC VBG pCO2 at Temp POC VBG pO2 POC VBG HCO3 POC VBG Total CO2 POC Venous O2 Sat POC VBG Base Excess Sodium 122 L Potassium 4.9 Chloride 84 L Carbon Dioxide 16 L Anion Gap 22.0 H BUN 102 H* Creatinine 2.9 H GFR Calculation 21 Glucose 208 H POC Venous Lactate Calcium 10.0 Magnesium Total Bilirubin 0.6 AST 18 ALT 18 Alkaline Phosphatase 141 H Total Protein 7.6 Albumin 4.3 Globulin 3.3 Albumin/Globulin Ratio 1.3 Lipase 18 Urine Color Yellow Urine Appearance Hazy A Urine pH 5.0 Ur Specific [place] 1.016 Urine Protein Negative Urine Glucose (UA) Negative Urine Ketones 5 A Urine Occult Blood Negative Urine Nitrate Negative Urine Bilirubin Negative Urine Urobilinogen Negative Ur Leukocyte Esterase Negative Urine RBC 1 Urine WBC 0 Ur Squamous Epith Cells 0 Urine Bacteria None Hyaline Casts 44 H Ur Culture Indicated? No 04/08/22 11:50 WBC RBC Hgb Hct MCV MCH MCHC RDW Plt Count MPV Neut % (Auto) Lymph % (Auto) [place] % (Auto) Eos % (Auto) Baso % (Auto) Lymph # (Auto) [place] # (Auto) Eos # (Auto) Baso # (Auto) Absolute Neutrophils POC VBG pH POC VBG pCO2 at Temp POC VBG pO2 POC VBG HCO3 POC VBG Total CO2 POC Venous O2 Sat POC VBG Base Excess Sodium Potassium Chloride Carbon Dioxide Anion Gap BUN Creatinine GFR Calculation Glucose POC Venous Lactate Calcium Magnesium 2.3 Total Bilirubin AST ALT Alkaline Phosphatase Total Protein Albumin Globulin Albumin/Globulin Ratio Lipase Urine Color Urine Appearance Urine pH Ur Specific [place] Urine Protein Urine Glucose (UA) Urine Ketones Urine Occult Blood Urine Nitrate Urine Bilirubin Urine Urobilinogen Ur Leukocyte Esterase Urine RBC Urine WBC Ur Squamous Epith Cells Urine Bacteria Hyaline Casts Ur Culture Indicated? Discharge Plan Patient/Caregiver Discharge Instructions Activity: increase activity as tolerated Diet: Regular Diet Prescriptions: Continued amlodipine 10 mg tablet 1 tab PO QDAY 0RF tacrolimus 1 mg capsule 1 mg PO QAM 0RF Rx Instructions: 1 capsule in the morning tacrolimus 1 mg Capsule 2 mg PO QHS 0RF Rx Instructions: 2 capsules in the evening rosuvastatin 5 mg tablet 1 tab PO QDAY 0RF desvenlafaxine 100 mg Tablet Extended Release 24 Hr 100 mg PO HS 0RF Discontinued triamterene-hydrochlorothiazid 37.5-25 mg Capsule 1 cap PO QAM 0RF lisinopril 10 mg tablet 1 tab PO QDAY 0RF Follow Up Plan Follow up with: Liang Giron DO [Primary Care Provider] - Patient Disposition: Home, Self-Care Plan of Treatment: Advance diet as tolerated. Remain hydrated. Prognosis: Good Rehab Potential: Good Overall status at discharge: patient is progressing back to baseline Discharge Orders: Discharge Order (Routine); Ordered 04/09/22 Ordered By: Rozina Infante
== END 2022-04-09 11:30 | disposition home or self-care (01) | DRG 392 ==
LOC: ED 11:16 → MEDSUR 16:20
PROVIDERS: ADMIT Student in an Organized Health Care Education/Training Program; ATTEND Student in an Organized Health Care Education/Training Program